=== PATIENT | male | born 1950 | race Caucasian/White ===

== ENCOUNTER → 2016-07-18 | Outpatient (CLI) | payer MEDICARE | END | disposition home or self-care (01) | LOC: PCVCIMAG 09:26 | PROVIDERS: ATTEND Internal Medicine | DX: I65.23 Occlusion and stenosis of bilateral carotid arteries (principal); I10 Essential (primary) hypertension; I70.1 Atherosclerosis of renal artery; I71.4 Abdominal aortic aneurysm, without rupture; I25.10 Atherosclerotic heart disease of native coronary artery without angina pectoris; I42.9 Cardiomyopathy, unspecified; E78.00 Pure hypercholesterolemia, unspecified; Z95.820 Peripheral vascular angioplasty status with implants and grafts | CPT/HCPCS: 76770; 80061; 93005; 93306; 93880; 93975; 93978; G0463 ==

== ENCOUNTER → 2017-08-07 | Outpatient (CLI) | payer MEDICARE | END | disposition home or self-care (01) | LOC: PCVCIMAG 11:16 | DX: I65.23 Occlusion and stenosis of bilateral carotid arteries (principal); I25.10 Atherosclerotic heart disease of native coronary artery without angina pectoris; I42.9 Cardiomyopathy, unspecified; I10 Essential (primary) hypertension; E78.5 Hyperlipidemia, unspecified; I70.1 Atherosclerosis of renal artery; I71.4 Abdominal aortic aneurysm, without rupture; I73.9 Peripheral vascular disease, unspecified; Z87.891 Personal history of nicotine dependence; Z79.899 Other long term (current) drug therapy; Z79.82 Long term (current) use of aspirin | CPT/HCPCS: 76770; 93005; 93880; 93975; 93978; G0463 ==

== ENCOUNTER → 2017-12-16 | Outpatient (CLI) | payer MEDICARE ==
--- NOTE | 2017-12-16 16:21 | PCVCIMAG ---
EXAM: AORTOILIAC DUPLEX INDICATION: Peripheral arterial disease. Abdominal aortic aneurysm. FINDINGS: AORTA: Suprarenal aorta measures maximum diameter of 2.9 cm. There is a fusiform infrarenal aortic aneurysm. The infrarenal aorta measures maximum diameter of 4.3 x 4.4 cm. No aortic stenosis. RIGHT COMMON ILIAC ARTERY: Maximum diameter is 1.1 cm. Increased velocity of 3 28 cm/s consistent with 70-80% stenosis. RIGHT EXTERNAL ILIAC ARTERY: Mild stenosis. LEFT COMMON ILIAC ARTERY: Maximum diameter is 1.7 x 2.2 cm distally. No significant stenosis. LEFT EXTERNAL ILIAC ARTERY: Mild stenosis. IMPRESSION: 4.4 cm infrarenal abdominal aortic aneurysm unchanged since June 2016 study. 70-80% stenosis right common iliac artery. Mild bilateral external iliac artery stenoses. LOC:[id number]
== END | disposition home or self-care (01) ==
LOC: PCVCIMAG 14:26
PROVIDERS: ATTEND Nuclear Medicine Nuclear Cardiology
DX: I70.203 Unspecified atherosclerosis of native arteries of extremities, bilateral legs (principal); I71.4 Abdominal aortic aneurysm, without rupture; M54.5 Low back pain
CPT/HCPCS: 93978

== ENCOUNTER → 2017-12-19 | Outpatient (CLI) | payer MEDICARE ==
[~2017-12-19] MED LIST: DIAZEPAM 10 MG TABLET. ONE; EPTIFIBATIDE BOLUS 2,000 MCG/ML 10ML VIAL. IV ONE; HEPARIN SODIUM 5,000 UNIT/ML VIAL for PCVC. ONE; IODIXANOL 270 MG/ML 100 ML VIAL. ONE; IV NORMAL SALINE 1000ML BAG 1,000 ML ONE; IV NORMAL SALINE 250ML 250 ML ONE; LIDOCAINE 1%/EPI 1:100,000 20 ML VIAL. ONE; MIDAZOLAM HCL/PF 2 MG/2 ML VIAL. ONE; fentaNYL PF VIAL 100 MCG/2 ML VIAL ONE
--- NOTE | 2017-12-19 12:48 | PCVCINTER ---
EXAM: 1. AORTOGRAM AND BILATERAL LOWER EXTREMITY RUNOFF ANGIOGRAM 2. BILATERAL RENAL ANGIOGRAPHY 3. LEFT SUPERFICIAL FEMORAL ARTERY ATHERECTOMY AND STENT PLACEMENT. 4. SECONDARY THROMBECTOMY LEFT SUPERFICIAL FEMORAL ARTERY. 5. DRUG COATED BALLOON ANGIOPLASTY LEFT SUPERFICIAL FEMORAL ARTERY. 6. LEFT EXTERNAL ILIAC ARTERY STENT PLACEMENT. 7. RIGHT COMMON ILIAC ARTERY ANGIOPLASTY. 8. RIGHT EXTERNAL ILIAC ARTERY ANGIOPLASTY.. INDICATION: Peripheral arterial disease. Nonhealing ulcer left lower extremity. Hypertension. Renal atherosclerosis. No prior catheter based angiographic study is available. A full diagnostic angiogram study is performed today and the decision to intervene is based on this diagnostic study. PROCEDURE: Procedure and risks of angiography intervention is appropriate including limb loss stroke and were discussed with the patient's family and consent obtained. The patient's right groin was prepped in the normal sterile fashion. IV conscious sedation was used throughout procedure with appropriate monitoring from 9:45 AM through 11:45 AM. Ultrasound was used to interrogate the right groin and showed the right common femoral artery to be patent. A permanent spot film was obtained. Under ultrasound guidance access into the right common femoral artery was obtained and a 5 Albanian sheath was placed. Through this a 5 Albanian flush catheter was placed into the abdominal aorta at the level of the renal arteries and AP aortogram was performed. Catheter was positioned at the aortic bifurcation and both oblique views of the pelvis were obtained. Catheter was positioned into the right external iliac artery and right leg runoff angiography was performed. Catheter was exchanged for a visceral catheter was placed into the right renal arteries and right renal angiograms obtained. Catheter was placed into the the left renal arteries and left renal angiograms were obtained. Catheter was advanced to the level of the left external iliac artery and left leg runoff angiography was obtained. Patient was given 4000 units of heparin. A 6 Albanian crossover sheath was placed via the right groin to the level of the left common femoral artery. Atherectomy of the left superficial femoral artery was performed with 2.0 mm [employer]net[employer]ial laser atherectomy catheter in the standard fashion. Following atherectomy small areas of thrombus were observed and because of this secondary thrombectomy throughout the left superficial femoral artery was carried out with mechanical suction thrombectomy catheter in the standard fashion. Minimal debris was removed. Following this drug coated balloon angioplasty of the left superficial femoral artery was carried out with a 4 x 120, 4 x 120, and 4 x 40 SpectranetAxial Cassie Carlo BOW MAKER catheters. Stent placement across the areas of high-grade stenosis in the left superficial femoral artery was carried out with a 6 x 150 and 6 x 100 Smart control stents with subsequent dilatation to 4.0 mm. Stent placement across the areas of high-grade stenosis in the left external iliac artery was carried out with a 10 x 80 Smart control stent with subsequent dilatation to 7.0 mm. Angioplasty of the right common iliac artery was performed with a 7 x 4 PowerFlex BOW MAKER catheter. Angioplasty of the right external iliac artery within prior stent was performed with a 7 x 4 PowerFlex BOW MAKER catheter. Follow-up angiogram was performed. Catheters and wires removed. Sheath was removed and hemostasis obtained using the FISH device. No immediate complications. FINDINGS: Aortogram: There is one right and one left renal artery. Infrarenal abdominal fusiform aorta. Pelvis: Previous stents in the right common and external iliac arteries show moderate restenosis. The right common femoral artery is patent. 90% stenosis origin of the right profunda femoral artery. 90% stenosis origin right internal iliac artery. Fusiform aneurysm dilatation left common iliac artery. Left internal iliac artery is occluded. Moderate stenosis mid left external iliac artery. Left common femoral artery shows 50% stenosis throughout. Left profunda femoral artery is patent. Right renal artery: Multiple prior stents in the right renal artery have been placed with only mild restenosis seen currently. Left renal artery: Multiple prior stents in the left renal artery have been placed with only mild restenosis seen currently. Right leg: Previous stent upper vessel shows mild restenosis not felt be flow-limiting. 70% stenosis mid and distal [place] superficial femoral artery. Popliteal artery is patent. The peroneal artery is a dominant runoff vessel showing good patency throughout. The mid and upper anterior and posterior tibial arteries are occluded. These distal vessels refill to runoff into the foot. Left leg: Occlusion of the upper portion of the [place] superficial femoral artery. Distal superficial femoral artery refills and is patent. The popliteal artery is patent. Mild stenoses mid posterior tibial artery. The peroneal artery is patent. The anterior tibial artery is occluded throughout its midportion. Left superficial femoral artery: Following procedure as above vessel shows good patency. Left external iliac artery: Following procedure as above vessel shows satisfactory patency. Right common iliac artery: Procedure and above vessel shows satisfactory patency. Right external iliac artery: Procedure as above vessel shows satisfactory patency. IMPRESSION: Occlusion upper [place] left superficial femoral artery, moderate stenosis mid left external iliac artery, and moderate in-stent restenosis right common and external iliac arteries were treated as noted above with satisfactory patency restored to these vessels. Bilateral infrapopliteal arterial occlusive disease as reviewed above. LOC:[id number]
== END | disposition home or self-care (01) ==
LOC: PCVCINTER 11:00
PROVIDERS: ATTEND Nuclear Medicine Nuclear Cardiology
DX: I70.248 Atherosclerosis of native arteries of left leg with ulceration of other part of lower leg (principal); L97.828 Non-pressure chronic ulcer of other part of left lower leg with other specified severity; I70.291 Other atherosclerosis of native arteries of extremities, right leg; I70.1 Atherosclerosis of renal artery; I10 Essential (primary) hypertension
CPT/HCPCS: 36252; 37186; 37220; 37221; 37222; 37227; 75716; 76937; 99152; 99153; C1725; C1751; C1757; C1760; C1769; C1876; C1885; C1887; C1894; C2623; J1327; J1644; J2250; J3010; J3490; J7030; J7050; Q9966

== ENCOUNTER → 2017-12-31 | Outpatient (CLI) | payer MEDICARE ==
--- NOTE | 2017-12-31 15:51 | PCVCIMAG ---
EXAM: VENOUS DUPLEX LEFT LOWER EXTREMITY INDICATION: Leg pain and swelling. FINDINGS: Left leg: No thrombus in the common femoral, main femoral, or popliteal veins. These veins are compressible with phasic flow. Calf veins are unremarkable where seen. IMPRESSION: No evidence of deep venous thrombosis in the left lower extremity as detailed above. LOC:[id number]
--- NOTE | 2017-12-31 15:58 | PCVCIMAG ---
EXAM: LEFT LOWER EXTREMITY ARTERIAL DUPLEX INDICATION: Peripheral Arterial Disease. Leg pain. FINDINGS: Left Le-60% stenosis common femoral artery was noted on previous angiogram. Mild stenosis origin profunda femoral artery. Superficial femoral artery and popliteal artery showing satisfactory patency. Previous stent throughout the superficial femoral artery maintaining satisfactory patency. Occlusion of the mid/distal anterior tibial artery is unchanged. The peroneal artery and posterior tibial arteries show adequate patency throughout. IMPRESSION: Previous left superficial femoral artery stent maintaining satisfactory patency. Unchanged occlusion mid/distal left anterior tibial artery. LOC:[id number]
== END | disposition home or self-care (01) ==
LOC: PCVCIMAG 13:00
PROVIDERS: ATTEND Internal Medicine
DX: M79.605 Pain in left leg (principal); M79.89 Other specified soft tissue disorders
CPT/HCPCS: 93926; 93971

== ENCOUNTER → 2018-02-19 | Outpatient (CLI) | payer MEDICARE | END | disposition home or self-care (01) | LOC: PCVCCLINIC 11:22 | PROVIDERS: ATTEND Internal Medicine | DX: I25.10 Atherosclerotic heart disease of native coronary artery without angina pectoris (principal); R55 Syncope and collapse; I10 Essential (primary) hypertension; I70.1 Atherosclerosis of renal artery; E78.5 Hyperlipidemia, unspecified; E78.00 Pure hypercholesterolemia, unspecified; I71.4 Abdominal aortic aneurysm, without rupture; I73.9 Peripheral vascular disease, unspecified; Z79.82 Long term (current) use of aspirin; Z87.891 Personal history of nicotine dependence | CPT/HCPCS: 93005; G0463 ==

== ENCOUNTER → 2018-04-02 | Outpatient (CLI) | payer MEDICARE | END | disposition home or self-care (01) | LOC: PCVCCLINIC 13:00 | PROVIDERS: ATTEND Internal Medicine | DX: I25.10 Atherosclerotic heart disease of native coronary artery without angina pectoris (principal); R55 Syncope and collapse; I10 Essential (primary) hypertension; I70.1 Atherosclerosis of renal artery; E78.5 Hyperlipidemia, unspecified; I71.4 Abdominal aortic aneurysm, without rupture; I73.9 Peripheral vascular disease, unspecified; E78.00 Pure hypercholesterolemia, unspecified; Z87.891 Personal history of nicotine dependence; Z79.82 Long term (current) use of aspirin | CPT/HCPCS: 93005; G0463 ==

== ENCOUNTER → 2018-04-11 | Outpatient (CLI) | payer MEDICARE ==
[~2018-04-11] MED LIST changes: -DIAZEPAM 10 MG TABLET. ONE; -EPTIFIBATIDE BOLUS 2,000 MCG/ML 10ML VIAL. IV ONE; -HEPARIN SODIUM 5,000 UNIT/ML VIAL for PCVC. ONE; -IODIXANOL 270 MG/ML 100 ML VIAL. ONE; -IV NORMAL SALINE 1000ML BAG 1,000 ML ONE; -IV NORMAL SALINE 250ML 250 ML ONE; -LIDOCAINE 1%/EPI 1:100,000 20 ML VIAL. ONE; -MIDAZOLAM HCL/PF 2 MG/2 ML VIAL. ONE; +REGADENOSON 0.4 MG/5 ML DISP.SYRIN. IV ONE; -fentaNYL PF VIAL 100 MCG/2 ML VIAL ONE
--- NOTE | 2018-04-14 08:18 | PCVCIMAG ---
APPROVED REPORT Study performed: 04/11/2018 08:16:12 EXAM: Comprehensive 2D, Doppler, and color-flow Echocardiogram Patient Location: Echo lab Room #: 2Status: routine BSA: 1.93 HR: 62 bpmBP: 126/74 mmHg Rhythm: NSR Other Information Study Quality: Adequate Risk Factors: Cardiac Risk Factors: HTN, Hyperlipidemia Indications CAD Palpitations Hypertension/HDD Hx syncope x 2 2D Dimensions IVSd: 7.77 (7-11mm)LVOT Diam: 24.11 (18-24mm) LVDd: 51.74 mm PWd: 8.98 (7-11mm)Ascending Ao: 30.70 (22-36mm) LVDs: 33.05 (25-40mm) Left Atrium: 32.02 (27-40mm) Aortic Root: 29.15 mm LV Single Plane 4CH: 60.94 % LV Single Plane 2CH: 58.60 % Biplane EF: 58.9 % Volumes Left Atrial Volume (Systole) Single Plane 4CH: 56.70 mLSingle Plane 2CH: 52.84 mL Biplane LA Volume: 56.00 mLLA ESV Index: 29.00 mL/m2 Aortic Valve AoV Peak Adalberto.: 0.99 m/s AO Peak Gr.: 3.92 mmHgLVOT Max P.17 mmHg LVOT Max V: 0.74 m/s RUBI Vmax: 3.39 cm2 Mitral Valve E/A Ratio: 0.4 MV Decel. Time: 220.46 ms MV E Max Adalberto.: 0.37 m/s MV A Adalberto.: 1.02 m/s TDI E/Lateral E': 6.17E/Medial E': 9.25 Medial E' Adalberto.: 0.04 m/s Lateral E' Adalberto.: 0.06 m/s Pulmonary Valve PV Peak Adalberto.: 0.63 m/sPV Peak Gr.: 1.58 mmHg Pulmonary Vein P Vein S: 0.57 m/sP Vein A: 0.37 m/s P Vein D: 0.23 m/sP Vein A Dur.: 110.7 msec P Vein S/D Ratio: 2.48 Tricuspid Valve TR Peak Adalberto.: 2.61 m/s TR Peak Gr.: 27.30 mmHg TV Vmax: 0.58 m/sPA Pressure: 34.00 mmHg Left Ventricle The left ventricle is normal size. There is normal LV segmental wall motion. Mild concentric left ventricular hypertrophy Left ventricular systolic function is normal. The left ventricular ejection fraction is within the normal range. LVEF is 55-60%. Grade I - abnormal relaxation pattern. Right Ventricle The right ventricle is normal size. The right ventricular systolic function is normal. Atria The left atrium size is normal. The right atrium size is normal. Aortic Valve The aortic valve is normal in structure. No aortic regurgitation is present. There is no aortic valvular stenosis. Mitral Valve The mitral valve is normal in structure. There is no mitral valve regurgitation noted. No evidence of mitral valve stenosis. Tricuspid Valve The tricuspid valve is normal in structure. Trace to mild tricuspid regurgitation with a PA pressure of 34 mmHg. Pulmonic Valve The pulmonary valve is normal in structure. There is no pulmonic valvular regurgitation. Great Vessels The aortic root is normal in size. The ascending aorta is normal in size. Aortic arch is normal in caliber. IVC is normal in size and collapses >50% with inspiration. Pericardium There is no pericardial effusion. There is no pleural effusion. <Conclusion> Left ventricular systolic function is normal. There is normal LV segmental wall motion. Mild concentric LVH LVEF is 55-60%. Mild diastolic dysfunction The aortic valve is normal in structure. No aortic regurgitation or stenosis The mitral valve is normal in structure. No mitral valve regurgitation. Trace to mild tricuspid regurgitation with a pulmonary artery pressure of 34 mmHg. There is no pericardial effusion.
--- NOTE | 2018-04-14 08:21 | PCVCIMAG ---
APPROVED REPORT Imaging Protocol: Rest Tc-99m/Stress Tc-99m 1 day Study performed: 04/11/2018 09:32:23 Indication: CAD, Near Syncope, ICM, Non sustained VTach Patient Location: Out-Patient Stress Nurse: Brit Cespedes RN, Mel Goncalves RN [place] Tech:MARIANNE Morrow Ht: 5 ft 10 in Wt: 167 lbs BSA: 1.93 m2 HR: 66 bpm BP: 156/79 mmHg BMI: 23.9 Rhythm: Normal Sinus Rhythm Medical History Medical History: HTN, Hyperlipidemia, PVD Medications: Amlodipine, ASA, Carvedilol, Valsartan Allergies: No known drug allergies Cardiac Risk Factors: Age Previous Cardiac Procedures: Cath 2016 - Mild disease. Pretest Chest Pain Characteristics: No chest pain Exercise History: Indeterminate Physical Disabilities: Hips Meds Held (24 hrs): Carvedilol Resting Data Rest SPECT myocardial perfusion imaging was performed in supine position 45 minutes following the intravenous injection of 10.9 mCi of Tc-99m Sestamibi. Time of rest injection: 0900 Date: 04/11/2018 Administration Route: IV Administration Site: Right AC Pharmacologic Stress Pharmacologic stress test was performed by injecting Regadenoson 0.4 mg IV push over 10-15 seconds immediately followed by the intravenous injection of 33.9 mCi of Tc-99m Sestamibi. Time of stress injection: 1020 Date: 04/11/2018 Administration Route: IV Administration Site: Right AC Gated Stress SPECT was performed 45 minutes after stress injection. The images were gated to evaluate regional wall motion and calculate left ventricular ejection fraction. Stress Test Details Stress Test: Pharmacologic stress was paired with low level exercise. Reason for pharmacologic stress test: hip issues. HRMax Heart Rate (APMHR): 152 bpm Resting HR: 66 bpmTarget HR (85% APMHR): 129 bpm Max HR Achieved: 84 bpm % of APMHR: 55 Recovery HR: 77 bpm BP Resting BP: 156/79 mmHg Max BP: 148/70 mmHg Recovery BP: 152/69 mmHg ECG Resting ECG: Normal Sinus Rhythm Stress ECG: Normal Sinus Rhythm ST Change: None Maximum ST Deviation: 0 mm Arrhythmia: None Recovery ECG: Normal Sinus Rhythm Recovery ST Change: None Recovery ST Deviation: 0 mm Recovery Arrhythmia: None Clinical Reason for Termination: Completed protocol Stress Symptoms: Mild chest heaviness Exercise duration: 4 min 00 sec Exercise capacity: 1.6 METs Symptoms resolved during recovery. Stress ECG Conclusion ECG: Non-ischemic Clinical: Non-ischemic Study Quality Study: Good Study Data Post stress, the left ventricular ejection was 44%.. SSS: 4 SRS: 7 SDS: 0 TID = 1.00. 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 Wall Motion Mildly decreased left ventricular systolic function. 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 Post stress, the left ventricular ejection was 44%. No prior study available for comparison. Interpreted by: Tony Taveras MD Electronically Approved: 04/11/2018 19:08:47 <Conclusion> ECG: Non-ischemic Clinical: Non-ischemic
== END | disposition home or self-care (01) ==
LOC: PCVCIMAG 08:49
PROVIDERS: ATTEND Internal Medicine
DX: I25.10 Atherosclerotic heart disease of native coronary artery without angina pectoris (principal); I10 Essential (primary) hypertension; R00.2 Palpitations; R55 Syncope and collapse; I47.2 Ventricular tachycardia; I25.5 Ischemic cardiomyopathy; I73.9 Peripheral vascular disease, unspecified; E78.5 Hyperlipidemia, unspecified
CPT/HCPCS: 78452; 93017; 93306; A9500; J2785

== ENCOUNTER → 2018-06-19 | Outpatient (CLI) | payer MEDICARE ==
--- NOTE | 2018-06-19 23:21 | PCVCIMAG ---
EXAM: BILATERAL RENAL ULTRASOUND AND BILATERAL RENAL DUPLEX INDICATION: Hypertension FINDINGS: Right kidney: Length measures 9.3 cm. No hydronephrosis or extensive renal scarring. Right renal duplex: Adequate technical quality. 50% proximal renal artery stenosis. The aortic to renal artery ratio is 5.7. The renal vein is patent. Left kidney: Length measures 10.7 cm. No hydronephrosis or extensive renal scarring. Incidental note is made of a 1.0 cm benign cyst midpole. Left renal duplex: Adequate technical quality. 50% proximal/mid renal artery stenosis. The aortic to renal artery ratio is 5.8. The renal vein is patent. Bladder: No obvious abnormalities. IMPRESSION: 50% bilateral renal artery stenoses similar to July 2017 study. LOC:OFFICE
--- NOTE | 2018-06-19 23:23 | PCVCIMAG ---
EXAM: AORTOILIAC DUPLEX INDICATION: Abdominal aortic aneurysm. FINDINGS: AORTA: Suprarenal aorta measures maximum diameter of 3.0 cm. There is a fusiform infrarenal aortic aneurysm. The infrarenal aorta measures maximum diameter of 4.1 x 4.3 cm. No aortic stenosis. RIGHT COMMON ILIAC ARTERY: Maximum diameter is 1.2 cm. No significant stenosis. RIGHT EXTERNAL ILIAC ARTERY: No significant stenosis. LEFT COMMON ILIAC ARTERY: Maximum diameter is 1.3 cm. No significant stenosis. LEFT EXTERNAL ILIAC ARTERY: No significant stenosis. IMPRESSION: 4.3 cm infrarenal abdominal aortic aneurysm is unchanged compared to June 2016 study. LOC:OFFICE
--- NOTE | 2018-06-19 23:28 | PCVCIMAG ---
EXAM: BILATERAL LOWER EXTREMITY ARTERIAL DUPLEX INDICATION: Peripheral Arterial Disease. Leg pain. FINDINGS: Right Le% stenosis common femoral artery. 90% stenosis profunda femoral artery. Previous stent upper superficial femoral artery maintaining adequate patency. 70% stenosis upper [place] distal superficial femoral artery. Occlusion of the upper posterior tibial artery. The anterior tibial and peroneal arteries are patent. Left Leg: Common femoral and profunda femoral arteries are patent. Superficial femoral and popliteal are patent including previous superficial femoral artery stent. Occlusion of the mid anterior tibial artery. The peroneal and posterior tibial arteries are patent. IMPRESSION: 70% right common femoral artery stenosis. 70% stenosis distal upper [place] right superficial femoral artery. Occlusion of the upper right posterior tibial artery. Previous left superficial femoral artery stent maintaining satisfactory patency. Unchanged occlusion mid left anterior tibial artery. LOC:OFFICE
== END | disposition home or self-care (01) ==
LOC: PCVCIMAG 08:50
PROVIDERS: ATTEND Nuclear Medicine Nuclear Cardiology
DX: I70.1 Atherosclerosis of renal artery (principal); I10 Essential (primary) hypertension; I71.4 Abdominal aortic aneurysm, without rupture; I73.9 Peripheral vascular disease, unspecified; I25.10 Atherosclerotic heart disease of native coronary artery without angina pectoris; R55 Syncope and collapse; E78.5 Hyperlipidemia, unspecified; E78.00 Pure hypercholesterolemia, unspecified; Z79.82 Long term (current) use of aspirin; Z87.891 Personal history of nicotine dependence
CPT/HCPCS: 36415; 76770; 80061; 93925; 93975; 93978; G0463

== ENCOUNTER → 2018-12-22 | Outpatient (CLI) | payer MEDICARE | END | disposition home or self-care (01) | LOC: PCVCCLINIC 15:06 | PROVIDERS: ATTEND Internal Medicine | DX: I25.10 Atherosclerotic heart disease of native coronary artery without angina pectoris (principal); R55 Syncope and collapse; I10 Essential (primary) hypertension; I70.1 Atherosclerosis of renal artery; E78.5 Hyperlipidemia, unspecified; I71.4 Abdominal aortic aneurysm, without rupture; I73.9 Peripheral vascular disease, unspecified; Z79.82 Long term (current) use of aspirin; Z87.891 Personal history of nicotine dependence | CPT/HCPCS: 93005; G0463 ==